=== PATIENT | male | born 1985 ===

== ENCOUNTER 2021-06-09 19:49 | Emergency (ER) | payer BC ==
--- NOTE | 2021-06-09 20:15 | EDM.PDOC ---
ED HPI GENERAL MEDICAL PROBLEM - General Chief Complaint: ENT Problem Stated Complaint: POSSIBLE SINUS INFECTION Time Seen by Provider: 06/09/21 19:58 Source of Information: Reports: Patient History Limitations: Reports: No Limitations - History of Present Illness INITIAL COMMENTS - FREE TEXT/NARRATIVE: HISTORY AND PHYSICAL: History of present illness: Kurt is a 35-year-old male that presents to the ED complaining of sinus pressure and nasal congestion. Patient reports sore throat starting 10 days ago followed by a cough and sinus symptoms, sore throat has since resolved. Patient reports sinus pressure of frontal sinus and right maxillary sinus. Patient reports cough has gotten better but cough and nasal congestion are still making sleeping difficult. Patient reports seeing blood when blowing their nose earlier today. Patient reports chills and sweats at night, denies measuring temperature. Patient denies loss of smell today's known sick contacts or GI symptoms. Denies any chest pain, back pain, shortness of breath. Patient has been eating and drinking appropriately. Review of systems: As per history of present illness and below otherwise all systems reviewed and negative. Past medical history: As per history of present illness and as reviewed below otherwise noncontributory. Surgical history: As per history of present illness and as reviewed below otherwise noncontributory. Social history: See social history for further information Family history: As per history of present illness and as reviewed below otherwise noncontributory. Physical exam: General: Well developed and well nourished 35 year old male. Alert and orientated x 3. Nontoxic in appearance and in no acute distress. Vital signs are stable and have been reviewed by me. Nursing notes were reviewed. HEENT: Atraumatic, normocephalic, pupils equal and reactive bilaterally, negative for conjunctival pallor or scleral icterus, mucous membranes moist, throat clear, neck supple, nontender, trachea midline. No drooling or trismus noted. No meningeal signs. No hot potato voice noted. Full frontal and right maxillary sinus were tender to palpation and percussion. Lungs: Clear to auscultation bilaterally. No wheezes, rales, or rhonchi. Chest nontender. Normal work of breathing, no accessory muscles used. Heart: S1S2, regular rate and rhythm without overt murmur, gallops, or rubs. No peripheral edema Skin: Intact, warm, dry. No lesions or rashes noted. Hematologic: No petechiae or purpura Extremities: Atraumatic, moves all extremities per self without difficulty or de ficits, negative for cords or calf pain. Neurovascular unremarkable. Neuro: Awake, alert, oriented. Cranial nerves II through XII unremarkable. Cerebellum unremarkable. Motor and sensory unremarkable throughout. Exam nonfocal. Psychiatric: Mood and affect are appropriate. Normal thought process. Answering questions appropriately. Please note that the patient was seen and evaluated during the 2019 SARS-CoV-2 novel coronavirus pandemic period. Community viral transmission is ongoing at time of this encounter and the emergency department is operating under pandemic response procedures. Medical Decision Making: Patient is a 35-year-old male who presents to the emergency room with complaints of sinus pressure, nasal congestion and resolved sore throat and cough. States symptoms have been ongoing for approximately 10 days. Patient does have tenderness to the frontal and right maxillary sinus. Will do Covid/influenza testing. If negative will treat as sinusitis I have talked with the patient about today's findings, in addition to providing specific details for plan of care. Reassessment at the time of disposition demonstrates that the patient is in no acute distress. The patient is stable for discharge, counseling was provided and we discussed in great detail signs and symptoms that would prompt them to return to the Emergency Department. Medication, follow up and supportive care measures were reviewed and discussed. Voices understanding and is agreeable to plan of care. Denies any further questions or concerns at this time. Diagnostics: COVID/Influenza Therapeutics: Azithromycin Prescription: Azithromycin Impression: Sinusitis Plan: 1. You were evaluated today on an emergent basis. Your COVID and influenza are negative. Please draft roller picker your antibiotic and start tomorrow. 2. You can alternate Tylenol and ibuprofen as needed for pain and fever management. 3. We encourage you to follow up with your primary care provider and/or recommended specialist in the next few days for re-evaluation and further care/management. 4. If your symptoms should worsen, new symptoms develop or any of the signs and symptoms we discussed should arise please return to the emergency room or call 911 (if needed). Definitive disposition and diagnosis as appropriate pending reevaluation and review of above. - Related Data Allergies Allergy/AdvReac Type Severity Reaction Status Date / Time Penicillins Allergy Severe Rash Verified 11/22/19 13:58 MDT Home Meds: Home Meds Cetirizine [ZyrTEC] 10 mg PO DAILY 11/22/19 [History] Acetaminophen/Codeine [Tylenol with Codeine No.3 300MG/30MG] 1 tab PO Q4H PRN #10 tab 06/09/21 [Rx] Azithromycin [Zithromax] 1 dose PO DAILY 5 Days #6 tab 06/09/21 [Rx] Past Medical History Cardiovascular History: Reports: None Respiratory History: Reports: None Gastrointestinal History: Reports: None Genitourinary History: Reports: None Musculoskeletal History: Reports: None Neurological History: Reports: None Psychiatric History: Reports: None Endocrine/Metabolic History: Reports: None Hematologic History: Reports: None Immunologic History: Reports: None Oncologic (Cancer) History: Reports: None Dermatologic History: Reports: None - Infectious Disease History Infectious Disease History: Reports: None - Past Surgical History HEENT Surgical History: Reports: Oral Surgery Social & Family History - Caffeine Use Caffeine Use: Reports: Coffee ED ROS ENT - Review of Systems Review Of Systems: Comprehensive ROS is negative, except as noted in HPI. ED EXAM, ENT - Physical Exam Exam: See Below (See dictation) Course - Vital Signs Last Recorded V/S: Last Vital Signs Temp 97.7 F 06/09/21 20:16 Pulse 80 06/09/21 20:16 Resp 17 06/09/21 20:16 BP 121/58 L 06/09/21 20:16 Pulse Ox 96 06/09/21 20:16 - Orders/Labs/Meds Labs: Laboratory Tests 06/09/21 Range/Units 20:48 Influenza Type A RNA NEGATIVE (NEGATIVE) Influenza Type B RNA NEGATIVE (NEGATIVE) SARS-CoV-2 RNA (MANJU) NEGATIVE (NEGATIVE) Departure - Departure Time of Disposition: 21:48 Disposition: Home, Self-Care 01 Clinical Impression: Sinusitis - Discharge Information Prescriptions: Acetaminophen/Codeine [Tylenol with Codeine No.3 300MG/30MG] 1 tab PO Q4H PRN #10 tab PRN Reason: Pain (Severe 7-10) Azithromycin [Zithromax] 1 dose PO DAILY 5 Days #6 tab Instructions: Sinusitis, Adult, [id number] Referrals: Kurt Tran MD [Primary Care Provider] - Forms: ED Department Discharge Additional Instructions: The following information is given to patients seen in the emergency department who are being discharged to home. This information is to outline your options for follow-up care. We provide all patients seen in our emergency department with a follow-up referral. The need for follow-up, as well as the timing and circumstances, are variable depending upon the specifics of your emergency department visit. If you don't have a primary care physician on staff, we will provide you with a referral. We always advise you to contact your personal physician following an emergency department visit to inform them of the circumstance of the visit and for follow-up with them and/or the need for any referrals to a consulting specialist. The emergency department will also refer you to a specialist when appropriate. This referral assures that you have the opportunity for follow-up care with a specialist. All of these measure are taken in an effort to provide you with optimal care, which includes your follow-up. Under all circumstances we always encourage you to contact your private physician who remains a resource for coordinating your care. When calling for follow-up care, please make the office aware that this follow-up is from your recent emergency room visit. If for any reason you are refused follow-up, please contact the [facility] Emergency Department at and asked to speak to the emergency department charge nurse. [facility] [address] [place] [id number] [address] [place] [phone] Thank you for choosing the [facility] emergency department in [place] for your medical needs today. It was a pleasure caring for you. Today you were seen in the emergency department for Sinusitis Your prescription was electronically sent to: Service [facility] Medication/Directions: Zithromax: take as directed 1. You were evaluated today on an emergent basis. Your COVID and influenza are negative. Please draft roller picker your antibiotic and start tomorrow. 2. You can alternate Tylenol and ibuprofen as needed for pain and fever management. 3. We encourage you to follow up with your primary care provider and/or recommended specialist in the next few days for re-evaluation and further care/management. 4. If your symptoms should worsen, new symptoms develop or any of the signs and symptoms we discussed should arise please return to the emergency room or call 911 (if needed). Sepsis Event Note (ED) - Focused Exam Vital Signs: Vital Signs Temp Pulse Resp BP Pulse Ox 06/09/21 20:16 97.7 F 80 17 121/58 L 96 06/09/21 20:09 97.7 F 80 17 121/58 L 96
[2021-06-09 21:45] LABS: CORONAVIRUS COVID-19 NAA NEGATIVE (NEGATIVE); INFLUENZA A NAA NEGATIVE (NEGATIVE); INFLUENZA B NAA NEGATIVE (NEGATIVE)
[2021-06-09] MEDS ORDERED: Azithromycin 250 MG Tab PO STA (21:49)
[2021-06-09] MEDS ORDERED: Acetaminophen/Codeine 300-30 MG Tab PO ONE (21:51)
== END 2021-06-09 22:05 | disposition home or self-care (01) ==
LOC: MW.ED 19:49
DX: J32.9 Chronic sinusitis, unspecified (principal); Z88.0 Allergy status to penicillin; Z20.822 Contact with and (suspected) exposure to COVID-19
CPT/HCPCS: 0240U; 99283; A9270